=== PATIENT | male | born 1995 | race Two or more races ===

== ENCOUNTER → 2016-11-02 | Outpatient (CLI) | payer OTHER ==
--- NOTE | 2016-11-03 05:02 | HKNOTE ---
DATE OF SERVICE: 11/02/2016 MAIN COMPLAINT: Left knee pain. HISTORY OF PRESENT ILLNESS: This is a 21-year-old male complaining of left knee pain for the last 4 months. He denies any history of trauma. He states that the pain is on the side of the knee and the back. He denies any locking, catching or instability. He does not take any pain medications. He states that the pain has decreased. He denies any recent infections. He denies any groin or back pain. PHYSICAL EXAMINATION: GAIT: Nonantalgic gait. No use of assistive devices. KNEES: Left knee: Neutral alignment, tender over the lateral joint line. Nontender over the medial joint line. Tender in the popliteal fossa. 0-130 degrees range of motion. Stable to varus and valgus stress. Negative Lc. Negative anterior drawer. Negative posterior drawer. Motor strength 5/5 quadriceps, hamstrings, peroneals, gastrosoleus, palpable pulses. IMPRESSION: A 21-year-old male with left knee strain. PLAN: I advised Mr. Heard, I would like to obtain an MRI to evaluate for lateral meniscus tear. [place] leaving the country for the next 2 years. He was given a prescription for ibuprofen 400 mg 50 tablets. He will follow up as needed in the future. Dictated By: Evgeny Lemos MD /[email or web address]/[email or web address] /Document#: [id number]
== END | disposition home or self-care (01) ==
LOC: HKI 14:55
PROVIDERS: ATTEND Orthopaedic Surgery Adult Reconstructive Orthopaedic Surgery
DX: M25.562 Pain in left knee (principal)
CPT/HCPCS: G0463